=== PATIENT | female | born 2005 | race Two or more races ===

== ENCOUNTER 2024-07-24 11:10 | Inpatient (IN) | payer OTHER ==
[2024-07-24] MEDS ORDERED: AMPICILLIN SODIUM 2 GM VIAL ONE (12:41)
[2024-07-24] MEDS ORDERED: SODIUM CHLORIDE 100 ML IVPB ONE (12:42)
[2024-07-24] MEDS: LACTATED RINGERS SOLUTION 1,000 ML/1,000 ML INFUS.BAG IV SCH (12:50)
[2024-07-24] MEDS: AMPICILLIN - 2 GM in SODIUM CHLORIDE 100 ML IVPB ONE (13:00)
[2024-07-24 13:09] VITALS: BMI 33.3
[2024-07-24 13:22] LABS: BASO % 0.3 % (0-2.0); EOS % 0.3 % (0-4.5); HEMOGLOBIN 10.9 GM/dL (10.7-15.3); LYMPH % 14.6 % (8-40); MCH 28.1 pg (25.7-33.7); MEAN PLT VOLUME 8.8 fl (7.5-11.1); MONO % 6.5 % (3.8-10.2); NEUT % 78.3 % (42.8-82.8); PLATELET COUNT 297 10^3/uL (134-434); RBC 3.88 M/mm3 (3.60-5.2); RDW 13.7 % (11.6-15.6); WHITE BLOOD COUNT 9.8 K/mm3 (4.0-10.0)
[2024-07-24 13:29] LABS: INR 0.93 (0.83-1.09); PROTHROMBIN TIME (PATIENT) 10.5 SEC (9.7-13.0)
[2024-07-24 13:31] LABS: ACTIVATED PTT 24.7 SECONDS (25.2-36.5)
[2024-07-24] MEDS ORDERED: FENTANYL/BUPIVACAINE/NS/PF - PCEA - 50 ML DISP.SYRIN EP ONE (13:43)
[2024-07-24 14:01] LABS: POTASSIUM 4.1 mmol/L (3.5-5.1)
[2024-07-24 14:04] LABS: BLOOD UREA NITROGEN 6.7 mg/dL (7-18)
[2024-07-24 14:07] LABS: CREATININE 0.7 mg/dL (0.55-1.3)
[2024-07-24 14:08] LABS: BILIRUBIN,TOTAL 0.4 mg/dL (0.2-1)
[2024-07-24 14:09] LABS: TOT PROT 7.1 g/dl (6.4-8.2)
[2024-07-24 14:44] LABS: HIV INTERPRETATION NEGATIVE (NEGATIVE)
[2024-07-24] MEDS ORDERED: OXYTOCIN 30 UNITS in 0.9% NS 30 UNIT/500 ML INFUS.BAG IVPB ONE (15:20)
[2024-07-24] MEDS ORDERED: OXYTOCIN 20 UNITS in 0.9% NS 20 UNIT/1,000 ML INFUS.BAG IV ONE (15:20)
[2024-07-24] MEDS ORDERED: METHYLERGONOVINE MALEATE 0.2 MG/1 ML AMP IM PRN (15:34)
[2024-07-24] MEDS ORDERED: BENZOCAINE 20% 57 GM BOTTLE TP PRN (15:34)
[2024-07-24] MEDS ORDERED: BENZOCAINE 28 GM HEMORRHOIDAL OINTMENT TP PRN (15:34)
[2024-07-24] MEDS ORDERED: WITCH HAZEL 50% (TUCKS) 40 PAD/JAR PAD TP PRN (15:34)
[2024-07-24] MEDS ORDERED: BISACODYL 10 MG SUPP.RECT RC PRN (15:34)
[2024-07-24 16:00] LABS: SYPHILIS W/ RPR CONF NON-REACTIVE (NONREACTIVE)
[2024-07-24 16:01] LABS: HEPATITIS B SURFACE AG MATERN NON-REACTIVE (NONREACTIVE)
[2024-07-24] MEDS: OXYTOCIN 20 UNITS in 0.9% NS 20 UNIT/1,000 ML INFUS.BAG IV SCH (16:12)
[2024-07-24 16:36] LABS: PH,URINE 6.5 (5.0-8.0); URINE APPEARANCE CLEAR; URINE BILIRUBIN NEGATIVE (NEGATIVE); URINE COLOR YELLOW; URINE GLUCOSE (UA) NEGATIVE (NEGATIVE); URINE KETONE NEGATIVE (NEGATIVE); URINE LEUK ESTERASE NEGATIVE (NEGATIVE); URINE NITRITE NEGATIVE (NEGATIVE); URINE PROTEIN NEGATIVE (NEGATIVE)
[2024-07-24 16:40] LABS: METHADONE, UR NEGATIVE (NEGATIVE); OPIATES, URI NEGATIVE (NEGATIVE); PHENCYCLIDINE,URINE NEGATIVE (NEGATIVE); URINE AMPHETAMINES NEGATIVE (NEGATIVE); URINE BARBITURATES NEGATIVE (NEGATIVE)
[2024-07-24 16:46] LABS: COCAINE, UR NEGATIVE (NEGATIVE); URINE BENZODIAZEPINES NEGATIVE (NEGATIVE)
[2024-07-24] MEDS ORDERED: AMPICILLIN - 1 GM in SODIUM CHLORIDE 100 ML IVPB SCH (17:00)
[2024-07-24 18:02] VITALS: RESP 18
[2024-07-24] MEDS: FERROUS SO4 325 MG TABLET (FP) PO SCH (18:15)
[2024-07-24] MEDS: ACETAMINOPHEN 325 MG TABLET (FP) PO PRN (20:18)
[2024-07-25] MEDS: IBUPROFEN 600 MG TABLET (FP) PO PRN (00:47)
[2024-07-25 08:17] LABS: BASO % 0.2 % (0-2.0); EOS % 0.4 % (0-4.5); HEMATOCRIT 29.4 % (32.4-45.2); HEMOGLOBIN 9.4 GM/dL (10.7-15.3); LYMPH % 16.1 % (8-40); MCH 27.4 pg (25.7-33.7); MCHC 31.9 g/dl (32.0-36.0); MEAN CELL VOLUME 85.8 fl (80-96); MEAN PLT VOLUME 9.2 fl (7.5-11.1); MONO % 8.7 % (3.8-10.2); NEUT % 74.6 % (42.8-82.8); PLATELET COUNT 260 10^3/uL (134-434); RBC 3.43 M/mm3 (3.60-5.2); RDW 13.4 % (11.6-15.6); WHITE BLOOD COUNT 12.8 K/mm3 (4.0-10.0)
[2024-07-25] MEDS: PRENATAL VITAMINS W/ FOLIC ACID TABLET (FP) PO SCH (09:55)
[2024-07-25] MEDS: DIPHTH,PERTUSS(ACELL),TET 0.5 ML DISP.SYRIN IM ONE (09:55)
[2024-07-25] MEDS: FLU VACCINE (FLULAVAL) PF 45 MCG/0.5 ML SYRINGE 2024-2025 IM ONE (09:55)
[2024-07-25] MEDS ORDERED: SENNOSIDES/DOCUSATE COMBO (SENNA PLUS) TABLET (UD) PO PRN (22:00)
[2024-07-26 09:52] VITALS: BP 117/70; PULSE 59; TEMP 97.9
== END 2024-07-26 15:40 | disposition home or self-care (01) | DRG 560 ==
LOC: JDEL 11:10 → JLDR 12:14 → J3W 17:58
PROVIDERS: ADMIT Obstetrics & Gynecology; ATTEND Obstetrics & Gynecology
PROC: 10E0XZZ Delivery of Products of Conception, External Approach (ICD-10-PCS; principal; 2024-07-24)
DX: O80 Encounter for full-term uncomplicated delivery (principal); Z3A.39 39 weeks gestation of pregnancy; Z37.0 Single live birth
CPT/HCPCS: 36415; 59409; 80053; 80307; 81003; 85025; 85610; 85730; 86780; 86803; 86850; 86900; 86901; 87340; 87389; 90656; 90715; G0008